=== PATIENT | female | born 2000 | race Caucasian/White ===

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

== ENCOUNTER 2021-01-13 22:40 | Emergency (ER) | payer OTHER ==
[2021-01-13 22:53] VITALS: TEMP 98.5
[2021-01-13] MEDS ORDERED: CEPHALEXIN500 M1 PO (23:19)
[2021-01-13 23:30] VITALS: BP 113/74; PULSE 63
== END 2021-01-13 23:30 | disposition home or self-care (01) ==
LOC: COL.ER 22:40
DX: R10.11 Right upper quadrant pain (principal)